=== PATIENT | female | born 1970 ===

== ENCOUNTER 2017-06-03 14:26 | Inpatient (IN) | payer OTHER ==
[~2017-06-03 14:26] MED LIST: ADVAIR 5001 DISK W/1; ALBUTEROL17 G1; ATROVENT 00.5 MG/2.5; GILTUSS HC SYR473 ML; GILTUSS LIQUID237 M1 PO; HYDROCHLOROTHIA25 GM; PREDNISOLONE5 MG; SINGULAIR10 MG; SYNTHROID50 MCG; TESSALON200 MG; XOPENEX1.25 MG/0.; ZITHROMAX500 MG PO
== END 2017-06-13 13:29 | disposition home or self-care (01) | DRG 191 ==
LOC: MEDJ 14:26
PROC: 4A033R1 Measurement of Arterial Saturation, Peripheral, Percutaneous Approach (ICD-10-PCS; principal; 2017-06-03)
PROC: 3E0F7GC Introduction of Other Therapeutic Substance into Respiratory Tract, Via Natural or Artificial Opening (ICD-10-PCS; 2017-06-03)
PROC: 02HV33Z Insertion of Infusion Device into Superior Vena Cava, Percutaneous Approach (ICD-10-PCS; 2017-06-04)
PROC: BB24ZZZ Computerized Tomography (CT Scan) of Bilateral Lungs (ICD-10-PCS; 2017-06-10)
DX: J44.1 Chronic obstructive pulmonary disease with (acute) exacerbation (principal); J45.41 Moderate persistent asthma with (acute) exacerbation; J20.9 Acute bronchitis, unspecified; J44.0 Chronic obstructive pulmonary disease with (acute) lower respiratory infection; K52.89 Other specified noninfective gastroenteritis and colitis